=== PATIENT | female | born 2000 | race Caucasian/White ===

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

== ENCOUNTER → 2020-08-20 | Outpatient (CLI) | payer OTHER ==
--- NOTE | 2020-08-20 13:18 | USB ---
Reason for exam: clinical finding. History: Patient is nulliparous. Family history of breast cancer in paternal grandmother at age 25, breast cancer in maternal grandmother, and breast cancer in paternal aunt. Took hormonal contraceptives for 3 months. Physical Findings: Nurse Summary: 5 x 3cm nodule in the left breast at 3 o'clock (nurse jchantel). US Breast LT Left complete breast ultrasound includes all four quadrants, the retroareolar region and axilla. Finding demonstrates a 3.9 x 3.9 x 1.6cm irregular, mixed, hypoechoic, vascular lesion at 3 o'clock, a 0.7 x 0.6 x 0.5cm oval, mixed, hypoechoic lesion at 3 o'clock, a 3.5 x 2.9 x 1.6cm irregular, mixed, hypoechoic, vascular lesion at 4 o'clock and a 1.8 x 1.1 x 0.7cm lymph node at the axilla. These results were verbally communicated with the patient and result sheet given to the patient on 08/20/20. ASSESSMENT: Suspicious, BI-RAD 4 RECOMMENDATION: Ultrasound core biopsy of the left breast. Called Dr. Aguirre's office with mammographic findings. Biopsy scheduled for 09/02/20 at 8:00. PRELIMINARY REPORT CALLED AND FAXED TO DR. AGUIRRE ON 08/20/20.
== END | disposition home or self-care (01) ==
LOC: RADMAMWWP 10:34
PROVIDERS: ATTEND Family Medicine
DX: N63.25 Unspecified lump in the left breast, overlapping quadrants (principal)

== ENCOUNTER → 2020-09-02 | Day surgery (SDC) | payer SELFPAY ==
[2020-09-02 07:25] VITALS: RESP 16
[2020-09-02 09:12] VITALS: BP 112/70; PULSE 70; TEMP 97.9
--- NOTE | 2020-09-02 09:54 | USB ---
EXAMINATION TYPE: US biopsy breast VAD LT, US breast aspiration ea add LT, US breast aspiration ea add LT DATE OF EXAM: 09/02/2020 CLINICAL HISTORY: 20-year-old female R92.8 Abnormal mammogram. Palpable abnormality left breast and tenderness. TECHNIQUE: Ultrasound guided core biopsy and percutaneous aspiration of the left breast. COMPARISON: 08/20/2020 FINDINGS: The procedure of ultrasound guided core biopsy and aspiration was explained to the patient. Benefits, alternatives, and risks were discussed. An informed consent was then obtained. The patient was placed in supine positioning for imaging and for the procedure. The overlying skin was prepped and draped in usual sterile fashion. Lidocaine was used as anesthetic into the skin and subcutaneous tissue up to area of concern in the 3 and 4:00 positions of the left breast in turn. Initial scanning redemonstrated the large heterogeneous lesions at the 3 and 4:00 position. There is some associated peripheral hyperemia. Posterior through transmission is noted. SITE 1, Left 4:00 aspiration: Initial anesthetic injection suggested a fluid composition to the 4:00 lesion. 18-gauge needle was advanced into the collection and aspiration yielded 6 mL of cloudy and blood-tinged fluid. The area markedly decompressed. SITE 1, Left 4:00 Biopsy: Some residual hypoechoic tissue remained after most of the collection collapsed. This is targeted for biopsy and five 13-gauge core samples were obtained via the vacuum-assisted mammotome Elite biopsy gun device. A ribbon clip was subsequently placed. SITE 2, Left 3:00 aspiration: An 18-gauge needle was advanced into the second collection and 6 mL's of purulent fluid was aspirated without difficulty. The lesion collapsed and some residual hypoechoic tissue remained. A Hydromark clip was placed at this site. Postbiopsy mammogram was deferred due to patient's age. The patient tolerated the procedure well without any immediate complication. The patient was kept in the radiology department for short stay after the procedure and then discharged home in stable condition. IMPRESSION: Successful, uncomplicated ultrasound guided aspiration and subsequent core biopsy of heterogeneous collection at 4:00, suspected abscess. Fluid analysis and histology pending. Successful aspiration of suspected abscess at 3:00. Fluid analysis pending. Appropriate medical management is recommended. If benign results, three-month follow-up ultrasound is recommended to reassess. Pathology Results: Benign LEFT BREAST 4:00: Fibrinopurulent material with granulation tissue and heavy contamination by red cells consistent with biopsy of organizing abscess/abscess wall. Cells diagnostic of neoplasm are not identified. A. LEFT BREAST CYST AT 3:00, ASPIRATION BIOPSY: Acute suppurative inflammation with some reactive duct lining cells consistent with breast abscess. B. LEFT BREAST LESION AT 4:00 POSITION, ASPIRATION BIOPSY: Acute inflammatory cells admixed with red blood cells and proteinaceous debris consistent with mammary abscess. Recommendation Follow up mammogram of the left breast in 6 months. MTDD
== END ==
LOC: RADUSWWP 07:09
PROVIDERS: ATTEND Surgery
DX: R92.8 Other abnormal and inconclusive findings on diagnostic imaging of breast (principal); N64.4 Mastodynia
CPT/HCPCS: 88108; 88305; 19000; 19001; 19083; A4648; J2001; 76942

== ENCOUNTER → 2021-02-24 | Outpatient (CLI) | payer OTHER ==
--- NOTE | 2021-02-24 11:19 | USB ---
Reason for exam: clinical finding. History: Patient is nulliparous. Family history of breast cancer in paternal grandmother at age 25, breast cancer in maternal grandmother, and breast cancer in paternal aunt. Benign US breast aspiration ea add LT of the left breast, September 02, 2020. Benign US breast aspiration ea add LT of the left breast, September 02, 2020. Benign US biopsy breast VAD LT of the left breast, September 02, 2020. Took hormonal contraceptives for 3 months. Indicated problem(s): palpable abnormality and lump or thickening in the left breast. Physical Findings: Nurse did not find any significant physical abnormalities on exam. US Breast LT Left complete breast ultrasound includes all four quadrants, the retroareolar region and axilla. Finding demonstrates a 0.5 x 0.6 x 0.3cm benign lymph node at 2 o'clock, a 1.5 x 1.8 x 1.4cm oval, thickened stall[place], mixed, hypoechoic lesion at 3 o'clock at the palpable containing previous biopsy clip, this may represent a residual or recurrent small abscess and a 1.5 x 1.2 x 0.6cm oval lymph node at the axilla. These results were verbally communicated with the patient and result sheet given to the patient on 02/24/21. ASSESSMENT: Probably benign, BI-RAD 3 RECOMMENDATION: Surgical consultation of the left breast. (to determine the need for antibiotics or repeat procedure) Called office with mammographic findings and has scheduled an appointment for the patient for 02/27/[address] Odonnell. PRELIMINARY REPORT CALLED AND FAXED TO DR. ODONNELL ON 02/24/21. Ultrasound of the left breast in 6 months.
== END | disposition home or self-care (01) ==
LOC: RADUSWWP 07:04
PROVIDERS: ATTEND Surgery
DX: R92.8 Other abnormal and inconclusive findings on diagnostic imaging of breast (principal)

== ENCOUNTER → 2021-09-02 | Outpatient (CLI) | payer OTHER ==
--- NOTE | 2021-09-02 14:38 | US ---
EXAMINATION TYPE: US pelvis complete transvag DATE OF EXAM: 09/02/2021 COMPARISON: NONE CLINICAL HISTORY: N92.0 EXCESSIVE AND FREQ MENSTRATION, N94.4 DYSMENORRHEA. TECHNIQUE: Transvaginal (TV) and Transabdominal (TA) . Date of LMP: 07/2021 EXAM MEASUREMENTS: Uterus: 8.7 x 2.7 x 5.2 cm Endometrial Stripe: 0.8 cm Right Ovary: 5.7 x 3.2 3.0 cm Left Ovary: 4.2 x 1.6 x 1.7 cm 1. Uterus: Anteverted wnl 2. Endometrium: wnl 3. Right Ovary: wnl 4. Left Ovary: wnl 5. Bilateral Adnexa: wnl 6. Posterior cul-de-sac: small amount of fluid seen Anteverted uterus. No suspicious thickening of the endometrial stripe. Both ovaries seen with scatter ed peripheral follicles. No concerning adnexal masses. Trace free fluid in pelvic cul-de-sac. IMPRESSION: No significant abnormality identified.
== END | disposition home or self-care (01) ==
LOC: RADUSWWP 13:31
PROVIDERS: ATTEND Family Medicine
DX: N92.0 Excessive and frequent menstruation with regular cycle (principal); N94.4 Primary dysmenorrhea
CPT/HCPCS: 76830; 76856

== ENCOUNTER → 2021-09-11 | Outpatient (CLI) | payer OTHER ==
--- NOTE | 2021-09-11 10:37 | USB ---
Reason for exam: follow-up at short interval from prior study. History: Patient is nulliparous. Family history of breast cancer in paternal grandmother at age 25. Benign US breast aspiration ea add LT of the left breast, September 02, 2020. Benign US breast aspiration ea add LT of the left breast, September 02, 2020. Benign US biopsy breast VAD LT of the left breast, September 02, 2020. Took hormonal contraceptives for 3 months. Physical Findings: Nurse did not find any significant physical abnormalities on exam. US Breast LT Left complete breast ultrasound includes all four quadrants, the retroareolar region and axilla. Finding demonstrates a 0.5 x 0.4 x 0.2cm cystic, benign lesion at 2 o'clock, a 0.4 x 0.4 x 0.2cm lymph node at 2 o'clock, a 1.3 x 1.1 x 0.4cm benign appearing lymph node at the axilla and 3 o'clock site of biopsy/abscess, clip seen with some surrounding vague hypoechoic tissue, likely scarring, previous residual fluid has resolved. These results were verbally communicated with the patient and result sheet given to the patient on 09/11/21. ASSESSMENT: Benign, BI-RAD 2 RECOMMENDATION: Routine screening mammogram of both breasts at age 40. (unless clinical indication to start sooner)
== END | disposition home or self-care (01) ==
LOC: RADUSWWP 08:24
PROVIDERS: ATTEND Surgery
DX: N63.0 Unspecified lump in unspecified breast (principal)

== ENCOUNTER 2024-04-19 21:10 | Emergency (ER) | payer OTHER ==
--- NOTE | 2024-04-19 21:30 | ED ---
Headache HPI - General Source: patient, RN notes reviewed <Marcie Sheriff - Last Filed: 04/19/24 21:28> <Cleveland Fontenot - Last Filed: 05/08/24 15:27> - General Stated Complaint: Migraine, Chest Pain Time Seen by Provider: 04/19/24 21:28 - History of Present Illness Initial Comments: Quick noteis a 24-year-old female with past medical history of migraines resents emergency department chief complaint of a headache over the past day. She states that she has Nurtec that she takes for abortive therapy which has not helped. Additionally patient states that she began experiencing left-sided stabbing chest pain a few hours ago associated shortness of breath. She states that over the past 2 days she is experiencing bodyaches, nausea, dry cough, rhinorrhea. (Marcie Sheriff) Patient is a 24-year-old woman here with 2 complaints. She is having some pain along the costal margin which started tonight. She states the pain is sharp, worse when she takes a deep breath and is limiting her from taking full breath. The patient has not had hemoptysis, diaphoresis, nausea or vomiting. No productive cough. She has had some upper respiratory symptoms including cough (nonproductive), congestion, myalgias Patient also has had a little bit of headache going on for the past couple of days. She states she does tend to get headaches, but that the medication did n ot help with this 1. No abnormal features associated with the headache. No fever or chills. No neurologic symptoms. (Cleveland Fontenot) - Related Data Home Medications Medication Instructions Recorded Confirmed [id number] 2 - 3 tab PO Q4HR PRN 04/13/18 09/02/20 [Excedrin] Previous Rx's Medication Instructions Recorded Naproxen 250 mg PO BID #20 tablet 04/20/24 Allergies Allergy/AdvReac Type Severity Reaction Status Date / Time No Known Allergies Allergy Verified 04/19/24 21:34 Review of Systems ROS Other: All systems not noted in ROS Statement are negative. <Marcie Sheriff - Last Filed: 04/19/24 21:28> ROS Other: All systems not noted in ROS Statement are negative. Constitutional: Denies: fever, chills ENT: Reports: congestion Respiratory: Reports: as per HPI, cough, dyspnea. Denies: wheezes, hemoptysis Cardiovascular: Reports: as per HPI, chest pain Gastrointestinal: Reports: as per HPI, abdominal pain Genitourinary: Denies: dysuria, frequency, hematuria Musculoskeletal: Denies: back pain Skin: Denies: rash Neurological: Denies: headache, weakness, numbness <Cleveland Fontenot - Last Filed: 05/08/24 15:27> ROS Statement: Those systems with pertinent positive or pertinent negative responses have been documented in the HPI. Past Medical History Past Medical History: No Reported History Additional Past Medical History / Comment(s): migraines History of Any Multi-Drug Resistant Organisms: None Reported Past Surgical History: Orthopedic Surgery Additional Past Surgical History / Comment(s): foot Past Anesthesia/Blood Transfusion Reactions: Postoperative Nausea & Vomiting (PONV) Smoking Status: Current every day smoker - Past Family History Mother Additional Family Medical History / Comment(s): mother has MS <Marcie Sheriff - Last Filed: 04/19/24 21:28> General Exam <Marcie Sheriff - Last Filed: 04/19/24 21:28> General appearance: alert, in no apparent distress Head exam: Present: atraumatic, normocephalic Eye exam: Present: normal appearance. Absent: scleral icterus, conjunctival injection ENT exam: Present: normal oropharynx Neck exam: Present: normal inspection, full ROM. Absent: tenderness, meningismus Respiratory exam: Present: normal lung sounds bilaterally. Absent: respiratory distress, wheezes, rales, rhonchi, stridor, accessory muscle use Cardiovascular Exam: Present: regular rate, normal rhythm, normal heart sounds. Absent: systolic murmur, diastolic murmur, rubs, gallop GI/Abdominal exam: Present: soft, tenderness (There is some tenderness just belo w the costal margin with guarding), guarding. Absent: distended, rebound, rigid, mass Extremities exam: Present: normal inspection, normal capillary refill. Absent: pedal edema, calf tenderness Back exam: Present: normal inspection. Absent: CVA tenderness (R), CVA tenderness (L) Neurological exam: Present: alert Skin exam: Present: warm, dry, intact, normal color. Absent: rash <Cleveland Fontenot - Last Filed: 05/08/24 15:27> - General Exam Comments Initial Comments: Visual Physical Exam Vital signs reviewed General: Well-appearing, nontoxic, no acute distress. Head: Normocephalic, atraumatic Eyes: PERRLA, EOMI ENT: Airway patent Chest: Nonlabored breathing Skin: No visual rash, normal skin tone Neuro: Alert and oriented 3 Musculoskeletal: No gross abnormalities (Marcie Sheriff) Course Vital Signs 04/19/24 04/19/24 04/20/24 21:27 23:42 02:29 Temperature 98.7 F Pulse Rate 94 76 74 Respiratory 17 18 16 Rate Blood Pressure 110/75 115/66 121/67 O2 Sat by Pulse 98 99 98 Oximetry 04/20/24 04:24 Temperature 98.1 F Pulse Rate 61 Respiratory 18 Rate Blood Pressure 101/40 O2 Sat by Pulse 97 Oximetry Medical Decision Making <Marcie Sheriff - Last Filed: 04/19/24 21:28> - Lab Data Result diagrams: 04/19/24 22:24 04/19/24 22:24 - EKG Data EKG shows normal: sinus rhythm, axis (Normal), intervals (Normal), QRS complexes (Normal) Rate: normal (Rate 92 bpm) Interpretation: nonspecific ST-T wave changes <Celvel[place] Fontenot - Last Filed: 05/08/24 15:27> - Medical Decision Making I completed the quick note portion of this chart signed Marcie Sheriff PA-C (Marcie Sheriff) The patient had CT of the abdomen pelvis which I interpreted as negative for acute surgical condition, no free air or obstruction. There is no lower lung infiltrate Was pt. sent in by a medical professional or institution (LUZ MARINA Lyles, SENIOR SQL DEVELOPER, urgent care, hospital, or half-way...) When possible be specific @ -[No] Did you speak to anyone other than the patient for history (EMS, parent, family, police, friend...)? What history was obtained from this source @ -[No] Did you review nursing and triage notes (agree or disagree)? Why? @ -[I reviewed and agree with nursing and triage notes] Were old charts reviewed (outside hosp., previous admission, EMS record, old EKG, old radiological studies, urgent care reports/EKG's, half-way records)? Report findings @ -[No old charts were reviewed] Differential Diagnosis (chest pain, altered mental status, abdominal pain women, abdominal pain men, vaginal bleeding, weakness, fever, dyspnea, syncope, headache, dizziness, GI bleed, back pain, seizure, CVA, palpatations, mental health, musculoskeletal)? @ -[Differential Abdominal Pain Men: Appendicitis, cholecystitis, diverticulosis, ischemic bowel, pancreatitis, hepatitis, UTI, gastroenteritis, AAA, incarcerated hernia, bowel obstruction, constipation, inflammatory bowel, hepatitis, peptic ulcer disease, splenic infarction, perforated viscus, testicular torsion, this is not meant to be an all-inclusive list EKG interpreted by me (3pts min.). @ -[Interpreted as above] X-rays interpreted by me (1pt min.). @ -[ CT interpreted by me (1pt min.). @ -[I interpreted as above U/S interpreted by me (1pt. min.). @ -[None done] What testing was considered but not performed or refused? (CT, X-rays, U/S, labs)? Why? @ -[None] What meds were considered but not given or refused? Why? @ -[None] Did you discuss the management of the patient with other professionals (mark oropeza i.e. , PA, SENIOR SQL DEVELOPER, lab, RT, psych nurse, outreach and education social worker, tele marketing executive, teacher, navigating officer, case specialist)? Give summary @ -[No] Was smoking cessation discussed for >3mins.? @ -[No] Was critical care preformed (if so, how long)? @ -[No] Were there social determinants of health that impacted care today? How? (Homelessness, low income, unemployed, alcoholism, drug addiction, transportation, low edu. Level, literacy, decrease access to med. care, prison, rehab)? @ -[No] Was there de-escalation of care discussed even if they declined (Discuss DNR or withdrawal of care, Hospice)? DNR status @ -[No] What co-morbidities impacted this encounter? (DM, HTN, Smoking, COPD, CAD, Cancer, CVA, ARF, Chemo, Hep., AIDS, mental health diagnosis, sleep apnea, morbid obesity)? @ -[None] Was patient admitted / discharged? Hospital course, mention meds given and route, prescriptions, significant lab abnormalities, going to OR and other pertinent info. @ -[This patient is a 24-year-old woman with headache and with pain at costal margin. On the exam she does have actually more pain in the upper abdomen with some guarding. CT of the abdomen will be obtained as this shows the abdominal area of discomfort as well as lower lobe should there be any infiltrate. CT scan is obtained which does not reveal acute surgical condition or pneumonia. The patient was feeling better after course here. Discussed appropriate further care and follow-up as well as return parameters. Undiagnosed new problem with uncertain prognosis? @ -[No] Drug Therapy requiring intensive monitoring for toxicity (Heparin, Nitro, Insulin, Cardizem)? @ -[No] Were any procedures done? @ -[No] Diagnosis/symptom? @ -[Acute headache Acute pleuritis Acute, or Chronic, or Acute on Chronic? @ -[Acute Uncomplicated (without systemic symptoms) or Complicated (systemic symptoms)? @ -[Uncomplicated Side effects of treatment? @ -[No] Exacerbation, Progression, or Severe Exacerbation? @ -[No] Poses a threat to life or bodily function? How? (Chest pain, USA, DC, pneumonia, PE, COPD, DKA, ARF, appy, cholecystitis, CVA, Diverticulitis, Homicidal, Suicidal, threat to staff... and all critical care pts) @ -[No] (Cleveland Fontenot) - Lab Data Lab Results 04/19/24 04/19/24 04/19/24 Range/Units 22:24 22:24 22:24 WBC 12.5 H (3.8-10.6) k/uL RBC 4.25 (3.80-5.40) m/uL Hgb 12.6 (11.4-16.0) gm/dL Hct 37.3 (34.0-46.0) % MCV 87.7 (80.0-100.0) fL MCH 29.6 (25.0-35.0) pg MCHC 33.8 (31.0-37.0) g/dL RDW 13.8 (11.5-15.5) % Plt Count 265 (150-450) k/uL MPV 9.1 Neutrophils % 78 % Lymphocytes % 15 % Monocytes % 5 % Eosinophils % 1 % Basophils % 0 % Neutrophils # 9.7 H (1.3-7.7) k/uL Lymphocytes # 1.8 (1.0-4.8) k/uL Monocytes # 0.6 (0-1.0) k/uL Eosinophils # 0.1 (0-0.7) k/uL Basophils # 0.0 (0-0.2) k/uL PT (10.0-12.5) sec INR (<1.2) APTT (22.0-30.0) sec Sodium 138 (137-145) mmol/L Potassium 3.8 (3.5-5.1) mmol/L Chloride 105 (98-107) mmol/L Carbon Dioxide 24 (22-30) mmol/L Anion Gap 9 mmol/L BUN 5 L (7-17) mg/dL Creatinine 0.59 (0.52-1.04) mg/dL Est GFR (CKD-EPI)AfAm >90 (>60 ml/min/1.73 sqM) Est GFR (CKD-EPI)NonAf >90 (>60 ml/min/1.73 sqM) Glucose 100 H (74-99) mg/dL Calcium 9.3 (8.4-10.2) mg/dL Magnesium 1.7 (1.6-2.3) mg/dL Total Bilirubin 0.5 (0.2-1.3) mg/dL AST 55 H (14-36) U/L ALT 65 H (4-34) U/L Alkaline Phosphatase 61 (38-126) U/L Total Protein 7.2 (6.3-8.2) g/dL Albumin 4.3 (3.5-5.0) g/dL Urine Color Urine Appearance (Clear) Urine pH (5.0-8.0) Ur Specific [place] (1.001-1.035) Urine Protein (Negative) Urine Glucose (UA) (Negative) Urine Ketones (Negative) Urine Blood (Negative) Urine Nitrite (Negative) Urine Bilirubin (Negative) Urine Urobilinogen (<2.0) mg/dL Ur Leukocyte Esterase (Negative) Urine RBC (0-5) /hpf Urine WBC (0-5) /hpf Ur Squamous Epith Cells (0-4) /hpf Amorphous Sediment (None) /hpf Urine Bacteria (None) /hpf Urine HCG, Qual (Not Detectd) Influenza Type A (PCR) Not Detected (Not Detectd) Influenza Type B (PCR) Not Detected (Not Detectd) RSV (PCR) Not Detected (Not Detectd) SARS-CoV-2 (PCR) Not Detected (Not Detectd) 04/19/24 04/19/24 04/19/24 Range/Units 22:24 23:48 23:48 WBC (3.8-10.6) k/uL RBC (3.80-5.40) m/uL Hgb (11.4-16.0) gm/dL Hct (34.0-46.0) % MCV (80.0-100.0) fL MCH (25.0-35.0) pg MCHC (31.0-37.0) g/dL RDW (11.5-15.5) % Plt Count (150-450) k/uL MPV Neutrophils % % Lymphocytes % % Monocytes % % Eosinophils % % Basophils % % Neutrophils # (1.3-7.7) k/uL Lymphocytes # (1.0-4.8) k/uL Monocytes # (0-1.0) k/uL Eosinophils # (0-0.7) k/uL Basophils # (0-0.2) k/uL PT 10.1 (10.0-12.5) sec INR 0.9 (<1.2) APTT 23.1 (22.0-30.0) sec Sodium (137-145) mmol/L Potassium (3.5-5.1) mmol/L Chloride (98-107) mmol/L Carbon Dioxide (22-30) mmol/L Anion Gap mmol/L BUN (7-17) mg/dL Creatinine (0.52-1.04) mg/dL Est GFR (CKD-EPI)AfAm (>60 ml/min/1.73 sqM) Est GFR (CKD-EPI)NonAf (>60 ml/min/1.73 sqM) Glucose (74-99) mg/dL Calcium (8.4-10.2) mg/dL Magnesium (1.6-2.3) mg/dL Total Bilirubin (0.2-1.3) mg/dL AST (14-36) U/L ALT (4-34) U/L Alkaline Phosphatase (38-126) U/L Total Protein (6.3-8.2) g/dL Albumin (3.5-5.0) g/dL Urine Color Colorless Urine Appearance Cloudy H (Clear) Urine pH 6.5 (5.0-8.0) Ur Specific [place] 1.003 (1.001-1.035) Urine Protein Negative (Negative) Urine Glucose (UA) Negative (Negative) Urine Ketones Negative (Negative) Urine Blood Moderate H (Negative) Urine Nitrite Negative (Negative) Urine Bilirubin Negative (Negative) Urine Urobilinogen <2.0 (<2.0) mg/dL Ur Leukocyte Esterase Moderate H (Negative) Urine RBC 3 (0-5) /hpf Urine WBC 5 (0-5) /hpf Ur Squamous Epith Cells 8 H (0-4) /hpf Amorphous Sediment Rare H (None) /hpf Urine Bacteria Rare H (None) /hpf Urine HCG, Qual Not Detected (Not Detectd) Influenza Type A (PCR) (Not Detectd) Influenza Type B (PCR) (Not Detectd) RSV (PCR) (Not Detectd) SARS-CoV-2 (PCR) (Not Detectd) Disposition <Marcie Sheriff - Last Filed: 04/19/24 21:28> Is patient prescribed a controlled substance at d/c from ED?: No <Cleveland Fontenot - Last Filed: 05/08/24 15:27> Clinical Impression: Pleuritis Disposition: HOME SELF-CARE Condition: Good Instructions (If sedation given, give patient instructions): Pleurisy (DC) Prescriptions: Naproxen 250 mg PO BID #20 tablet Referrals: Solitario Murillo MD [Primary Care Provider] - 1-2 days
[2024-04-19 22:32] LABS: Basophils % (A) 0 %; Eosinophils # (A) 0.1 k/uL (0-0.7); Eosinophils % (A) 1 %; HCT 37.3 % (34.0-46.0); HGB 12.6 gm/dL (11.4-16.0); Lymphocytes # (A) 1.8 k/uL (1.0-4.8); Lymphocytes % (A) 15 %; MCH 29.6 pg (25.0-35.0); MCHC 33.8 g/dL (31.0-37.0); MCV 87.7 fL (80.0-100.0); Mean Platelet Volume 9.1; Monocytes # (A) 0.6 k/uL (0-1.0); Monocytes % (A) 5 %; Neutrophils # (A) 9.7 k/uL (1.3-7.7); Neutrophils % (A) 78 %; Platelet Count 265 k/uL (150-450); RBC 4.25 m/uL (3.80-5.40); RDW 13.8 % (11.5-15.5); WBC 12.5 k/uL (3.8-10.6)
[2024-04-19 22:49] LABS: INR 0.9 (<1.2); Partial Thromboplastin Time 23.1 sec (22.0-30.0); Prothrombin Time 10.1 sec (10.0-12.5)
[2024-04-19 22:50] LABS: ALT 65 U/L (4-34); AST 55 U/L (14-36); African American GFR (CKD) >90 (>60 ml/min/1.73 sqM); Albumin 4.3 g/dL (3.5-5.0); Alkaline Phosphatase 61 U/L (38-126); Anion Gap 9 mmol/L; Blood Urea Nitrogen 5 mg/dL (7-17); Calcium 9.3 mg/dL (8.4-10.2); Carbon Dioxide 24 mmol/L (22-30); Chloride 105 mmol/L (98-107); Glucose 100 mg/dL (74-99); Magnesium 1.7 mg/dL (1.6-2.3); Non-African American GFR(CKD) >90 (>60 ml/min/1.73 sqM); Potassium 3.8 mmol/L (3.5-5.1); Sodium 138 mmol/L (137-145); Total Bilirubin 0.5 mg/dL (0.2-1.3); Total Protein 7.2 g/dL (6.3-8.2)
[2024-04-20 00:13] LABS: Amorphous Sediment,Urine Rare /hpf; Appearance,Urine Cloudy (Clear); Bacteria,Urine Rare /hpf; Bilirubin,Urine Negative (Negative); Blood,Urine Moderate (Negative); Color,Urine Colorless; Glucose,Urine (UA) Negative (Negative); Ketones,Urine Negative (Negative); Leukocyte Esterase,Urine Moderate (Negative); Nitrite,Urine Negative (Negative); PH, Urine 6.5 (5.0-8.0); Protein,Urine Negative (Negative); RBC,Urine 3 /hpf (0-5); Specific Gravity,Urine 1.003 (1.001-1.035); Squamous Epithelial Cell,Urine 8 /hpf (0-4); Urobilinogen,Urine <2.0 mg/dL (<2.0); WBC,Urine 5 /hpf (0-5)
[2024-04-20] MEDS: SODIUM CHLORIDE 0.9% 1,000 ML IV STA (00:53)
[2024-04-20] MEDS: MORPHINE SULFATE 4 MG/ML SYRINGE IV STA (00:57)
[2024-04-20] MEDS: ONDANSETRON 4 MG/2 ML VIAL IVP STA (00:58)
[2024-04-20] MEDS: KETOROLAC 15 MG/ML 1 ML VIAL IVP STA (02:47)
--- NOTE | 2024-04-20 03:33 | CT ---
EXAM: CT Abdomen and Pelvis Without Intravenous Contrast CLINICAL HISTORY: ITS.REASON CT Reason: L flank pain TECHNIQUE: Axial computed tomography images of the abdomen and pelvis without intravenous contrast. CTDI is 8.8 mGy and DLP is 470.1 mGy-cm. This CT exam was performed using one or more of the following dose reduction techniques: automated exposure control, adjustment of the mA and/or kV according to patient size, and/or use of iterative reconstruction technique. Coronal and sagittal reformatted images were created and reviewed. 443 images COMPARISON: No relevant prior studies available. FINDINGS: Lung bases: Unremarkable. No mass. No consolidation. ABDOMEN: Liver: Unremarkable. Gallbladder and bile ducts: Unremarkable. No calcified stones. No ductal dilation. Pancreas: Unremarkable. No ductal dilation. Spleen: Unremarkable. No splenomegaly. Adrenals: Unremarkable. No mass. Kidneys and ureters: Unremarkable. No obstructing stones. No hydronephrosis. Stomach and bowel: Unremarkable. No obstruction. No mucosal thickening. PELVIS: Appendix: Normal appendix. Bladder: Unremarkable. No stones. Reproductive: Unremarkable as visualized. ABDOMEN and PELVIS: Intraperitoneal space: Unremarkable. No free air. No significant fluid collection. Bones/joints: No acute findings. Soft tissues: Unremarkable. Vasculature: Unremarkable. No abdominal aortic aneurysm. Lymph nodes: Unremarkable. No enlarged lymph nodes. Other findings: Broad-based circumferential disc bulge at L4-5 abutting the anterior thecal sac best seen on series 203 image 69 and 201 image 70. IMPRESSION: No obstructive uropathy or stone in collecting system. Broad-based circumferential disc bulge at L4-5
[2024-04-20 05:03] VITALS: BP 101/40; PULSE 61; RESP 18; TEMP 98.1
== END 2024-04-20 02:24 | disposition home or self-care (01) ==
LOC: EC 21:10
DX: R09.1 Pleurisy (principal); F17.200 Nicotine dependence, unspecified, uncomplicated
CPT/HCPCS: 99285; 96374; 96375 ×2; 96361 ×2; 36415; 93005; 80053; 83735; 85025; 85610; 85730; 81001; 81025; 87636; 74176; J2270; J2405; J1885

== ENCOUNTER 2024-11-16 22:13 | Emergency (ER) | payer OTHER ==
[2024-11-16 22:26] VITALS: RESP 18; TEMP 98.4
--- NOTE | 2024-11-16 23:06 | ED ---
Headache HPI - General Chief Complaint: Headache Stated Complaint: rash migraine Time Seen by Provider: 11/16/24 22:27 Source: patient, RN notes reviewed Mode of arrival: ambulatory Limitations: no limitations - History of Present Illness Initial Comments: This is a 24-year-old female who presents to the emergency department for a headache. Patient has a history of migraines and states that she had one flareup on her this morning. She has abortive medication to take as needed, but was not at home to take it today. She would not describe this as the worst headache of her life, states that it is feels like a typical migraine. She does get associated nausea and photophobia with this. States that migraine cocktails here are usually effective. MD Complaint: "migraine" - Related Data Home Medications Medication Instructions Recorded Confirmed [id number] 2 - 3 tab PO Q4HR PRN 04/13/18 09/02/20 [Excedrin] Previous Rx's Medication Instructions Recorded Naproxen 250 mg PO BID #20 tablet 04/20/24 Ketorolac [Toradol] 10 mg PO Q6HR PRN #15 tab 11/17/24 Ondansetron Odt [Zofran Odt] 4 mg PO Q8HR PRN #15 tab 11/17/24 Allergies Allergy/AdvReac Type Severity Reaction Status Date / Time No Known Allergies Allergy Verified 11/16/24 22:25 Review of Systems ROS Statement: Those systems with pertinent positive or pertinent negative responses have been documented in the HPI. ROS Other: All systems not noted in ROS Statement are negative. Past Medical History Past Medical History: No Reported History Additional Past Medical History / Comment(s): migraines History of Any Multi-Drug Resistant Organisms: None Reported Past Surgical History: Orthopedic Surgery Additional Past Surgical History / Comment(s): foot Past Anesthesia/Blood Transfusion Reactions: Postoperative Nausea & Vomiting (PONV) Past Psychological History: No Psychological Hx Reported Smoking Status: Current every day smoker, Vaper Past Alcohol Use History: Occasional Past Drug Use History: None Reported - Past Family History Mother Additional Family Medical History / Comment(s): mother has MS General Exam Limitations: no limitations General appearance: alert, in no apparent distress Head exam: Present: atraumatic, normocephalic, normal inspection Eye exam: Present: normal appearance, PERRL, EOMI. Absent: scleral icterus, conjunctival injection, periorbital swelling Respiratory exam: Present: normal lung sounds bilaterally. Absent: respiratory distress, wheezes, rales, rhonchi, stridor Cardiovascular Exam: Present: regular rate, normal rhythm, normal heart sounds. Absent: systolic murmur, diastolic murmur, rubs, gallop, clicks Neurological exam: Present: alert, oriented X3, CN II-XII intact Psychiatric exam: Present: normal affect, normal mood Skin exam: Present: warm, dry, intact, normal color. Absent: rash Course Vital Signs 11/16/24 11/16/24 11/17/24 22:23 22:54 01:16 Temperature 98.4 F Pulse Rate 86 76 62 Respiratory 18 18 18 Rate Blood Pressure 121/77 120/78 102/56 O2 Sat by Pulse 100 100 97 Oximetry Medical Decision Making - Medical Decision Making This is a 24 year old female who presents to the emergency department for a headache. Was pt. sent in by a medical professional or institution? @ -No Did you speak to anyone other than the patient for history? @ -No Did you review nursing and triage notes? @ -Yes, and I agree, it is accurate with regards to the patient's symptoms. Were old charts reviewed? @ -No Differential Diagnosis? @ -Differential Headache: Migraine, tension, cluster, carbon monoxide, central venous thrombosis, pension karma temporal arteritis, acute closure glaucoma, intercranial hemorrhage, mastoiditis, sinusitis, head injury, this is not meant to be an all-inclusive list. EKG interpreted by me (3pts min.)? @ -Not obtained X-rays interpreted by me (1pt min.)? @ -Not obtained CT interpreted by me (1pt min.)? @ -Not obtained U/S interpreted by me (1pt. min.)? @ -Not obtained What testing was considered but not performed? (CT, X-rays, U/S, labs)? Why? @ -None What meds were considered but not given? Why? @ -None Did you discuss the management of the patient with other professionals? @ -No Did you reconcile home meds? @ -No Was smoking cessation discussed for >3mins.? @ -No Was critical care preformed (if so, how long)? @ -No Were there social determinants of health that impacted care today? How? (Homelessness, low income, unemployed, alcoholism, drug addiction, transportation, low edu. Level, literacy, decrease access to med. care, shelter, rehab)? @ -No Was there de-escalation of care discussed even if they declined? (Discuss DNR or withdrawal of care, Hospice)? @ -No What co-morbidities impacted this encounter? (DM, HTN, Smoking, COPD, CAD, Cancer, CVA, Hep., AIDS, mental health diagnosis, sleep apnea, morbid obesity)? @ -Migraines Was patient admitted / discharged? @ -Discharged. Patient was experiencing a typical migraine. This was not the worst headache of her life and the headache was not different than normal. She was given a migraine cocktail consisting of IV fluids, Toradol, Decadron, Benadryl, and Compazine. She essentially had resolution of symptoms afterwards. Prescription for Toradol and Zofran provided for any additional headaches or nausea. Advised follow-up with her PCP. Patient discharged home in stable condition. Case discussed with ED attending Dr. Fontenot. Return precautions reviewed in depth, the patient is instructed to return to the emergency department with any new, worsening, or concerning symptoms. Patient verbalized understanding. Undiagnosed new problem with uncertain prognosis? @ -None Drug Therapy requiring intensive monitoring for toxicity (Heparin, Nitro, Insulin, Cardizem)? @ -None Were any procedures done? @ -None Diagnosis/symptom? @ -Migraine headache Acute, or Chronic, or Acute on Chronic? @ -Acute Uncomplicated (without systemic symptoms) or Complicated (systemic symptoms)? @ -Uncomplicated Side effects of treatment? @ -None Exacerbation, Progression, or Severe Exacerbation] @ -Not applicable Poses a threat to life or bodily function? @ -No - Radiology Data Radiology results: report reviewed, image reviewed Disposition Clinical Impression: Migraine headache Disposition: HOME SELF-CARE Instructions (If sedation given, give patient instructions): Migraine Headache (ED) Additional Instructions: Return to the emergency department with any new, worsening, or concerning symptoms. Take the Toradol with Tylenol as needed for pain relief. If you choose to take the Toradol, do not take any other anti-inflammatories such as ibuprofen, take one or the other. You can take the Zofran up to every 8 hours as needed for nausea and vomiting. Follow up with your primary care provider in 1-2 days. Prescriptions: Ketorolac [Toradol] 10 mg PO Q6HR PRN #15 tab PRN Reason: Pain Ondansetron Odt [Zofran Odt] 4 mg PO Q8HR PRN #15 tab PRN Reason: Nausea And Vomiting Is patient prescribed a controlled substance at d/c from ED?: No Referrals: Solitario Murillo MD [Primary Care Provider] - 1-2 days Time of Disposition: 00:17
[2024-11-16] MEDS: SODIUM CHLORIDE 0.9% 1,000 ML IV STA (23:19)
[2024-11-16] MEDS: KETOROLAC 15 MG/ML 1 ML VIAL IVP STA (23:20)
[2024-11-16] MEDS: PROCHLORPERAZINE INJ 10 MG/2 ML VIAL IVP STA (23:22)
[2024-11-16] MEDS: DEXAMETHASONE SOD PHOSPHATE 10 MG/ML 1 ML VIAL IVP STA (23:23)
[2024-11-16] MEDS: diphenhydrAMINE 50 MG/ML 1 ML VIAL IVP STA (23:25)
[2024-11-17 01:18] VITALS: BP 102/56; PULSE 62
[2024-11-17] MEDS: ONDANSETRON 4 MG ODT STARTER PACK 2 TAB BTL PO STA (01:23)
== END 2024-11-17 01:23 | disposition home or self-care (01) ==
LOC: EC 22:13
DX: G43.909 Migraine, unspecified, not intractable, without status migrainosus (principal); F17.290 Nicotine dependence, other tobacco product, uncomplicated
CPT/HCPCS: 99283; 96374; 96375 ×3; 96361 ×2; J1200; J0780; J1100; J1885